=== PATIENT | male | born 1980 | race Hispanic/Latino ===

== ENCOUNTER 2021-12-18 21:52 | Emergency (ER) | payer OTHER ==
[2021-12-18 21:58] VITALS: BP 147/99
[2021-12-19 05:21] LABS: Basophils # (Auto) 0.1 K/mm3 (0.0-0.1); Basophils % (Auto) 0.5 % (0.0-1.8); Eosinophils # (Auto) 0.3 K/mm3 (0.0-0.4); Eosinophils % (Auto) 2.2 % (0.0-4.3); Hematocrit 44.1 % (35.5-45.6); Hemoglobin 14.9 gm/dl (11.8-15.2); Lymphocytes # (Auto) 2.5 K/mm3 (1.2-5.4); Lymphocytes % (Auto) 19.3 % (13.4-35.0); Mean Corpuscular HGB Conc 34 % (32-34); Mean Corpuscular Volume 95 fl (84-94); Monocytes % (Auto) 8.1 % (0.0-7.3); Platelet Count 360 K/mm3 (140-440); Red Blood Count 4.65 M/mm3 (3.65-5.03); Red Cell Distribution Width 13.8 % (13.2-15.2)
[2021-12-19 05:22] LABS: Benzodiazepines Screen,Urine Negative; Cocaine Screen,Urine Negative; Methadone Screen,Urine Negative; Opiate Screen,Urine Negative
[2021-12-19 05:24] LABS: Bilirubin,Urine NEG (Negative); Blood,Urine MOD (Negative); Color,Urine Yellow (Yellow); Mucus,Urine FEW /HPF; Urobilinogen,Urine < 2.0 mg/dL (<2.0)
[2021-12-19 05:35] LABS: BUN/Creatinine Ratio 11; Blood Urea Nitrogen 9 mg/dL (9-20); Calcium 9.9 mg/dL (8.4-10.2); Hemolysis Index 5
[2021-12-19 06:08] LABS: Amphetamine Screen,Urine Positive; Cannabinoid Screen,Urine Positive
[2021-12-19 07:28] LABS: Blood Urea Nitrogen 9 mg/dL (9-20); Calcium 9.6 mg/dL (8.4-10.2); Hemolysis Index 10
[2021-12-19 07:29] LABS: BUN/Creatinine Ratio 13
[2021-12-19 08:57] LABS: Benzodiazepines Screen,Urine Negative; Cocaine Screen,Urine Negative; Methadone Screen,Urine Negative; Opiate Screen,Urine Negative
[2021-12-19 09:00] LABS: Bilirubin,Urine NEG (Negative); Blood,Urine MOD (Negative); Color,Urine Yellow (Yellow); Hyaline Casts,Urine 1 /LPF; Urobilinogen,Urine < 2.0 mg/dL (<2.0)
[2021-12-19 09:08] LABS: Amphetamine Screen,Urine Positive; Cannabinoid Screen,Urine Positive
--- NOTE | 2021-12-19 11:57 | Emergency Department Report ---
HPI - General Chief Complaint: Psych Time Seen by Provider: 12/19/21 11:04 - HPI HPI: The patient says he has been on a recent methamphetamine binge. He is coming down off it and got paranoid thinking that there were some people at 1 hurt him. He denies any suicidal ideations but did tell the intake personnel that he felt suicidal just to get a bed after waiting 8 hours in the waiting room. He currently denies any nausea vomiting fever chills chest pain focal weakness headache or any other associated symptoms. He currently feels well and feels li ke he can go home. He denies any coingestions other than marijuana. Nothing makes it better nor worse. ED Past Medical Hx - Past Medical History Previous Medical History?: No - Surgical History Past Surgical History?: No - Family History Family history: no significant - Social History Smoking Status: Current Every Day Smoker Substance Use Type: Alcohol, Methamphetamines ED Review of Systems ROS: Stated complaint: MENTAL HEALTH EVAL Other details as noted in HPI Other: All other systems reviewed and negative. Physical Exam - Physical Exam Vital Signs: Vital Signs 12/18/21 12/19/21 21:55 08:40 Temperature 98.9 F Pulse Rate 96 H Respiratory 22 Rate Blood Pressure 147/99 O2 Sat by Pulse 96 99 Oximetry Physical Exam: Physical Exam: Constitutional: AAOX3. No acute distress. No diaphoresis. HENT: Normocephalic. Pupils equal and reactive. No throat edema or erythema. Neck: No neck rigidity or tenderness. Cardiovascular: Heart sounds: No murmur. Normal rate and regular rhythm. Pulses: Intact distal pulses. Lungs: No wheezing or rales. Chest wall: No tenderness. Abdominal: No distension. No mass/pulsatile mass. No abdominal tenderness, guarding nor rebound. Musculoskeletal: Normal range of motion. No edema, No calf TTP. Skin: Warm and dry. Neurological: Alert and oriented to person, place, and time. Psychiatric: Mood and affect normal. Normal cognition and memory. Normal judg ement. The patient is alert active and oriented x3 and making good eye contact. The mood is euethymic with congruent affect. The patient does not seem under the influence of any psychoactive substances. The thought pattern is relevant and coherent. The patient denies suicidal ideations. ED Course Vital Signs 12/18/21 12/19/21 21:55 08:40 Temperature 98.9 F Pulse Rate 96 H Respiratory 22 Rate Blood Pressure 147/99 O2 Sat by Pulse 96 99 Oximetry - Reevaluation(s) Reevaluation #1: 12/19/21 11:56 The patient seems comfortable at this time. He denies any chest pain or shortness of breath. His laboratories were all within normal limits other than positive for marijuana and amphetamines. At this time he does not seem a threat to himself or others I am going to discharge him home. ED Medical Decision Making - Lab Data Result diagrams: 12/19/21 04:52 12/19/21 06:40 Critical care attestation.: If time is entered above; I have spent that time in minutes in the direct care of this critically ill patient, excluding procedure time. ED Disposition Clinical Impression: Methamphetamine abuse Disposition: 01 HOME / SELF CARE / HOMELESS Is pt being admited?: No Does the pt Need Aspirin: No Condition: Stable Instructions: Amphetamines Use Disorder Referrals: PRIMARY CARE, [Primary Care Provider] - 3-5 Days Time of Disposition: 11:55 Print Language: SLOVAK
--- NOTE | 2021-12-19 12:15 | Consultation ---
History of Present Illness - Reason for Consult Consult date: 12/19/21 Reason for consult: mental health evalutaion - History of Present Psychiatric Illness The patient is a 41 year old male with history of methamphetamine abuse who presents to the ED with paranoia. In my encounter with the patient, he is calm, alert and oriented x3. The patient reports that he last used Meth about 3 days ago and that he was " having Meth reaction." The patient reports been to [facility] inpatient psych detox and rehab admissions; last rehab admission was 2 months ago at [facility]. He states that he consumes about 1 to 2 shots of Meth on and off for the past 4 years. The patient denies any current suicidal/homicidal ideation and denies hallucinations. PAST PSYCHIATRIC HISTORY: Diagnoses:methamphetamine abuse Suicide attempts or Self-harm behavior:Yes Prior psychiatric hospitalizations: Yes Substance Abuse history: Meth Previous psychiatric medications tried:Unknown Outpatient treatment:Unknown PAST MEDICAL HISTORY: None reported or document Family Psychiatric History: None reported or documented SOCIAL HISTORY Marital Status: single Living Arrangements: Lives with mother Employment Status: Unemployed Access to guns/weapons: Denies Education:College History of Abuse: Denies Legal History: Denies REVIEW OF SYSTEMS Constitutional: Negative for weight loss ENT: Negative for stridor Respiratory: Negative for cough or hemoptysis All other systems reviewed and are negative MENTAL STATUS EXAMINATION General Appearance and Behavior: Age appropriate, wearing appropriate clothes, cooperative, polite with questioning, good eye contact, calm, polite Cooperation: cooperative Psychomotor Behavior: Psychomotor normal Mood: calm Affect and affective range: Congruent with stated mood Thought Process: Goal directed Thought Content:Reality oriented Speech: Normal volume, Regular rate and rhythm Suicidal Ideation: Denies Homicidal Ideation: Denies Hallucination: Denies Delusions: None elicited Impulse Control: limited Insight and Judgment: Limited Memory: intact Attention: attentive Orientation: Alert and oriented Diagnoses: Methamphetamine abuse Treatment Plan Continue home meds PSYCHOTHERAPY: Supportive psychotherapy provided MEDICAL: Per primary team DELIRIUM PRECAUTIONS: Please re-orient patient frequently, keep lights on during the day, and minimize benzodiazepines and opiates as these medications could worsen patient's confusion. ELECTROTYPE CASTER: Per medical team DISPOSITION: Do not recommend acute psychiatric inpatient treatment. Court Magistrate will provide patient with psychiatric outpatient resources. Will sign off. Thank you for the consult. Case staffed with Dr. Lyons Medications and Allergies Medications and Allergies Allergies Allergy/AdvReac Type Severity Reaction Status Date / Time No Known Allergies Allergy Unverified 12/18/21 21:57 Mental Status Exam - Vital signs Last Vital Signs Temp 98.9 F 12/18/21 21:55 Pulse 96 H 12/18/21 21:55 Resp 22 12/18/21 21:55 BP 147/99 12/18/21 21:55 Pulse Ox 99 12/19/21 08:40 Results Result Diagrams: 12/19/21 04:52 12/19/21 06:40 Abnormal lab results 12/19/21 12/19/21 12/19/21 Range/Units 04:52 04:52 04:52 WBC (4.5-11.0) K/mm3 MCV (84-94) fl [place] % (Auto) (0.0-7.3) % [place] # (Auto) (0.0-0.8) K/mm3 Seg Neutrophils # (1.8-7.7) K/mm3 Sodium 136 L (137-145) mmol/L Chloride 95.0 L (98-107) mmol/L Creatinine (0.8-1.3) mg/dL Glucose 129 H (75-100) mg/dL Salicylates < 0.3 L (2.8-20.0) mg/dL Acetaminophen 5.0 L (10.0-30.0) ug/mL 12/19/21 12/19/21 12/19/21 Range/Units 04:52 06:40 06:40 WBC 12.8 H (4.5-11.0) K/mm3 MCV 95 H (84-94) fl [place] % (Auto) 8.1 H (0.0-7.3) % [place] # (Auto) 1.0 H (0.0-0.8) K/mm3 Seg Neutrophils # 9.0 H (1.8-7.7) K/mm3 Sodium (137-145) mmol/L Chloride (98-107) mmol/L Creatinine (0.8-1.3) mg/dL Glucose (75-100) mg/dL Salicylates < 0.3 L (2.8-20.0) mg/dL Acetaminophen 5.0 L (10.0-30.0) ug/mL 12/19/21 Range/Units 06:40 WBC (4.5-11.0) K/mm3 MCV (84-94) fl [place] % (Auto) (0.0-7.3) % [place] # (Auto) (0.0-0.8) K/mm3 Seg Neutrophils # (1.8-7.7) K/mm3 Sodium 136 L (137-145) mmol/L Chloride (98-107) mmol/L Creatinine 0.7 L (0.8-1.3) mg/dL Glucose 124 H (75-100) mg/dL Salicylates (2.8-20.0) mg/dL Acetaminophen (10.0-30.0) ug/mL All other labs normal.
== END 2021-12-19 15:00 | disposition home or self-care (01) ==
LOC: EDBD → ED 21:52
DX: F15.10 Other stimulant abuse, uncomplicated (principal); Z20.822 Contact with and (suspected) exposure to COVID-19; F17.290 Nicotine dependence, other tobacco product, uncomplicated
CPT/HCPCS: 36415; 80048; 80307; 81001; 85025; 99284; U0003; 80320; G0480